=== PATIENT | female | born 1970 ===

== ENCOUNTER 2018-04-29 11:35 | Day surgery (SDC) | payer OTHER ==
[~2018-04-29] VITALS: Ht 152.4 cm; Wt 58.5 kg
[2018-04-29] MEDS ORDERED: Hair, Skin & N1 EACH (12:16)
[2018-04-29] MEDS ORDERED: IRON150C (12:17)
--- NOTE | 2018-04-29 14:03 | NUR ---
04/29/18 1402 Amber Pantoja [facility] STATES DEFICIT [id number]
--- NOTE | 2018-04-29 14:24 | NUR ---
04/29/18 1424 Qiana Swain V PT RESTING IN RECLINER, CALL LIGHT WITHIN REACH, AT CHAIR-SIDE. VSS. PT REPORTS PAIN 5/10 FOR WHICH SHE HAS BEEN MEDICATED FOR PER ORDERS.
== END 2018-04-29 14:55 | disposition home or self-care (01) ==
LOC: ORSCSDS 11:35
PROVIDERS: Obstetrics & Gynecology
PROC: 0U5B8ZZ Destruction of Endometrium, Via Natural or Artificial Opening Endoscopic (ICD-10-PCS; principal; 2018-04-29 12:30)
DX: N92.0 Excessive and frequent menstruation with regular cycle (principal); N93.8 Other specified abnormal uterine and vaginal bleeding; N71.9 Inflammatory disease of uterus, unspecified
CPT/HCPCS: 88305; J0690; J1100; J1885; J2250; J2405; J2765; J3010; J7120